=== PATIENT | male | born 1995 | race Caucasian/White ===

== ENCOUNTER 2016-09-12 02:06 | Emergency (ER) | payer OTHER ==
[~2016-09-12] VITALS: Ht 170.2 cm; Wt 63.5 kg
[~2016-09-12 02:06] MED LIST: ZANTAC 150MG T150 MG PO; ZOFRAN ODT4 MG PO
[2016-09-12 02:29] LABS: ABSOLUTE NEUTROPHILS 7.8 thou/uL (1.4-8.2); BASOPHILS 0.5 % (0.0-2.0); EOSINOPHILS 0.8 % (0.0-3.0); HEMATOCRIT 45.5 % (42.0-52.0); HEMOGLOBIN 15.3 gm/dL (14.0-18.0); LYMPHOCYTES 24.1 % (24.0-44.0); MANUAL DIFF NO; MCH 29.7 pg (26.0-34.0); MCHC 33.7 g/dL (28.0-37.0); MONOCYTES 6.9 % (1.0-8.0); PLATELET COUNT 199 thou/uL (150-400); POLYS 67.7 % (36.0-66.0); RBC 5.17 mil/uL (4.50-6.00); RDW 13.4 % (10.5-14.5); WBC 11.5 thou/uL (4.0-11.0)
[2016-09-12 02:43] LABS: CALCIUM 9.1 mg/dL (8.5-10.1); CREATININE 1.1 mg/dL (0.7-1.3); POTASSIUM 3.6 mmol/L (3.5-5.1)
[2016-09-12 02:47] LABS: ALBUMIN 4.6 g/dL (3.4-5.0); TOTAL BILIRUBIN 0.4 mg/dL (<0.1-1.0); TOTAL PROTEIN 7.5 g/dL (6.4-8.2)
[2016-09-12] MEDS ORDERED: LEVSIN0.125 MG PO (04:15)
[2016-09-12] MEDS ORDERED: ZOFRAN ODT8 MG PO (04:15)
[2016-09-12 05:44] VITALS: BP 90/47
== END 2016-09-12 06:11 | disposition home or self-care (01) ==
LOC: ER 02:06
PROVIDERS: Emergency Medicine
DX: R11.2 Nausea with vomiting, unspecified (principal); R19.7 Diarrhea, unspecified; F17.210 Nicotine dependence, cigarettes, uncomplicated

== ENCOUNTER 2017-11-25 04:00 | Emergency (ER) | payer OTHER ==
[~2017-11-25] VITALS: Ht 170.2 cm; Wt 61.2 kg
--- NOTE | ~2017-11-25 | EKG ---
[place] [address] [facility] [place] [address] ELECTROCARDIOGRAM REPORT Name: MODESTO NAJERA Room #: [facility]#: [id number] Admission: 11/25/17 Attend Phys: Discharge: 11/25/17 Date of : [birth year] Report #: [id number] THIS REPORT FOR: //name// [facility] ED Test Date: 2017-11-25 Test Time: 04:38:33 Pat Name: MODESTO NAJERA Department: Room: Gender: M Hospital Security Officer: ani : 1995 Requested By: Venu Bentley Order Number: [id number] MD: Jason Alva Measurements Intervals [place] Rate: 69 P: 78 NC: 174 QRS: 85 QRSD: 102 T: 59 QT: 423 QTc: 454 Interpretive Statements Sinus rhythm No significant abnormality No previous ECG available for comparison Electronically Signed On 11-25-2017 13:53:03 CDT by Jason Alva [email or web address] <ELECTRONICALLY SIGNED> By: Jason Alva MD, [facility] 11/25/17 1353 0438 0438 Jason Alva MD, FACC /EPI
[~2017-11-25 04:00] MED LIST changes: +LEVSIN0.125 MG PO; +ZOFRAN ODT8 MG PO
[2017-11-25 04:21] LABS: ABSOLUTE NEUTROPHILS 4.4 thou/uL (1.4-8.2); BASOPHILS 0.9 % (0.0-2.0); EOSINOPHILS 1.8 % (0.0-3.0); HEMATOCRIT 42.4 % (42.0-52.0); HEMOGLOBIN 14.8 gm/dL (14.0-18.0); MCH 30.5 pg (26.0-34.0); MCHC 34.8 g/dL (28.0-37.0); MCV 87.5 fL (80.0-100.0); MONOCYTES 7.7 % (1.0-8.0); PLATELET COUNT 210 thou/uL (150-400); POLYS 49.6 % (36.0-66.0); RBC 4.84 mil/uL (4.50-6.00)
[2017-11-25 04:39] LABS: ANION GAP 11 mmol/L (7-16); BUN 20 mg/dL (7-18); CALCIUM 9.4 mg/dL (8.5-10.1); CHLORIDE 103 mmol/L (98-107); CO2 24 mmol/L (21-32); CREATININE 1.1 mg/dL (0.7-1.3); GLUCOSE 93 mg/dL (74-106); POTASSIUM 3.4 mmol/L (3.5-5.1); SODIUM 138 mmol/L (136-145)
[2017-11-25 04:44] LABS: ALBUMIN 4.7 g/dL (3.4-5.0); SGOT 19 U/L (15-37); SGPT 23 U/L (30-65); TOTAL BILIRUBIN 0.5 mg/dL (<0.1-1.0); TOTAL PROTEIN 7.8 g/dL (6.4-8.2); TROPONIN-I <0.06 ng/mL (<0.06)
[2017-11-25 07:19] VITALS: BP 132/76
== END 2017-11-25 07:21 | disposition home or self-care (01) ==
LOC: ER 04:00
PROVIDERS: Emergency Medicine
DX: R10.13 Epigastric pain (principal); R10.33 Periumbilical pain; R10.32 Left lower quadrant pain; R11.2 Nausea with vomiting, unspecified; F17.210 Nicotine dependence, cigarettes, uncomplicated; K21.9 Gastro-esophageal reflux disease without esophagitis

== ENCOUNTER 2017-11-25 21:58 | Inpatient (IN) | payer OTHER ==
[~2017-11-25] VITALS: Ht 170.2 cm; Wt 58.4 kg
--- NOTE | ~2017-11-25 | P ---
[facility] [place] [address] [place] [address] PROCEDURE REPORT Name: DANIANAVYAValentin Templeton Room #: 212-P [facility] IN ..#: [id number] Admission: 11/25/17 Attend Phys: Noble Castillo MD Discharge: 11/28/17 Date of : [birth year] Report #: [id number] THIS REPORT FOR: //name// CC: Dr. Kevin MATHIS physician/PCP Noble Castillo DATE OF SERVICE: 11/27/2017 PROCEDURE PERFORMED: Upper endoscopy with biopsies. HISTORY OF PRESENT ILLNESS: The patient is a 22-year-old male with intermittent heartburn symptoms, began having increasing midepigastric abdominal pain and low chest pain as well as nausea and vomiting. CT scan of the abdomen and pelvis was negative for significant findings, although there was a possible fluid around the gallbladder. White blood cell count is 11.1. The patient has been taking Zantac at home without much improvement. The patient denies any dysphagia or odynophagia. Plan is for upper endoscopy. DESCRIPTION OF PROCEDURE: The risks and benefits of the procedure were explained to the patient and those risks including but not limited to bleeding, perforation and the risk of sedation. He understood these risks and gave informed consent. Sedation was given using propofol per Anesthesia. Next, using a standard Olympus upper endoscope, the scope was placed in the patient's mouth and advanced under direct vision through the esophagus, stomach and into the second portion of the duodenum. The larynx was normal in appearance. The upper and mid esophagus was normal. In the distal esophagus at the GE junction, grade B erosive esophagitis was noted. No evidence of bleeding. Overall, the gastric mucosa was normal. Biopsies were obtained to rule out the possibility of H. pylori. The pylorus was normal and patent. The duodenal bulb, first and second portion were all normal. Biopsies were also obtained to rule out the possibility of celiac sprue. The scope was then withdrawn and the procedure terminated. The patient tolerated the procedure well. IMPRESSION: 1. Grade B erosive esophagitis. 2. Otherwise, normal upper endoscopy. RECOMMENDATIONS: 1. Await biopsy results. 2. Continue daily PPI therapy. 3. We will discuss options with the patient at this time. Since he has improved, could consider discharge to home on daily PPI therapy and monitoring or consider PIPIDA scan due to the patient's symptoms and a small amount of fluid around the gallbladder on CT yesterday. [address] [address] PROCEDURE REPORT Name: MODESTO NAJEAR Room #: 212-P [facility] IN .R.#: [id number] Admission: 11/25/17 Attend Phys: Noble Castillo MD Discharge: 11/28/17 Date of : [birth year] Report #: [id number] Thank you for allowing me to participate in his care. <ELECTRONICALLY SIGNED> By: Alejo Guerrero MD 11/30/17 1239 1232 1247 Alejo Guerrero MD /paula
--- NOTE | ~2017-11-25 | PATH ---
[facility] [address] [address] PATHOLOGY RPT PROCEDURE Name: DANIANAVYAValentin Templeton Room #: 212-P DIS IN M.R.#: [id number] Admission: 11/25/17 Date of : [birth year] Discharge: 11/28/17 Report #: [id number] Path Case #: [id number] [facility] Accession Number: [id number] . 01 Material submitted: . PART A: BX SMALL BOWEL R/O CELIAC PART B: BX GASTRIC R/O HPYLORI . 01 Clinical history: . Pre-Op DX: Nausea, vomiting Post-Op DX: Esophagitis . 02 Diagnosis: A. Small bowel mucosa, small bowel rule out celiac, endoscopic biopsy: - No diagnostic abnormalities present. - Negative for villous blunting or increase in intraepithelial lymphocytes. . B. Gastric mucosa, gastric rule out H. pylori, endoscopic biopsy: - Mild focal chronic inflammation. - Negative for intestinal metaplasia or atrophy. - Negative for Helicobacter pylori (properly-controlled immunohistochemical stain performed). . (IUV:mml; 11/28/17) QLM/11/28/2017 . 02 Electronically signed: . Page Maurer MD, Pathologist NPI- [id number] . 01 Gross description: . A. Received in formalin labeled "Adriana Najera, BX small bowel, rule out celiac," are 4 segments of martin soft tissue measuring 1.3 x 0.8 x 0.3 cm in aggregate dimensions and ranging from 0.3 to 0.5 cm in maximum dimension. The specimen is submitted entirely in cassette A1. . B. Received in formalin labeled "Adriana Najera, BX gastric, rule out H. pylori," are 3 segments of martin soft tissue measuring 1.2 x 0.8 x 0.3 cm in aggregate dimensions and ranging from 0.4 to 0.7 cm in maximum dimension. The specimen is submitted entirely in cassette B1. (TSD; 11/27/2017) TOB/TOB . 02 Pathologist provided ICD-10: K29.50, R11.2 . 02 [place] [address] PATHOLOGY RPT PROCEDURE Name: ADRIANA NAJERA Room #: 212-P DIS IN M.R.#: [id number] Admission: 11/25/17 Date of : [birth year] Discharge: 11/28/17 Report #: [id number] Path Case #: [id number] CPT . 707171, [id number], [id number] Performed at: [address], [place], [place] [id number] MD Tello Boudreaux MD Phone: [phone] Performed at: [address] [id number] MD Page Maurer MD Phone: [phone]
[2017-11-25 22:03] VITALS: BP 138/80
[2017-11-25 23:11] LABS: ABSOLUTE NEUTROPHILS 8.3 thou/uL (1.4-8.2); BASOPHILS 0.9 % (0.0-2.0); EOSINOPHILS 0.9 % (0.0-3.0); HEMATOCRIT 42.5 % (42.0-52.0); HEMOGLOBIN 14.5 gm/dL (14.0-18.0); LYMPHOCYTES 17.9 % (24.0-44.0); MCH 29.8 pg (26.0-34.0); MCHC 34.1 g/dL (28.0-37.0); MCV 87.5 fL (80.0-100.0); MONOCYTES 5.9 % (1.0-8.0); PLATELET COUNT 184 thou/uL (150-400); POLYS 74.4 % (36.0-66.0); RBC 4.86 mil/uL (4.50-6.00); RDW 13.2 % (10.5-14.5); WBC 11.1 thou/uL (4.0-11.0)
[2017-11-25 23:19] LABS: CALCIUM 8.8 mg/dL (8.5-10.1)
[2017-11-25 23:25] LABS: ALBUMIN 4.1 g/dL (3.4-5.0); TOTAL BILIRUBIN 0.7 mg/dL (<0.1-1.0); TOTAL PROTEIN 7.1 g/dL (6.4-8.2)
[2017-11-25 23:41] VITALS: BP 116/76
[2017-11-25 23:59] VITALS: BP 97/43
[2017-11-26 00:16] VITALS: BP 108/62
[2017-11-26 03:53] VITALS: BP 105/62
[2017-11-26 07:45] VITALS: BP 113/64
[2017-11-26 15:20] VITALS: BP 111/62
[2017-11-26 15:20] LABS: URINE BILIRUBIN NEGATIVE (Negative); URINE BLOOD NEGATIVE (Negative); URINE CLARITY CLEAR; URINE COLOR YELLOW; URINE GLUCOSE-RANDOM* NEGATIVE (Negative); URINE KETONES 1+ (Negative); URINE LEUKOCYTES-REFLEX NEGATIVE (Negative); URINE NITRITE-REFLEX NEGATIVE (Negative); URINE PROTEIN (DIPSTICK) NEGATIVE (Negative); URINE UROBILINOGEN 0.2 E.U./dl (0.2-1.0)
[2017-11-26 19:35] VITALS: BP 116/76
[2017-11-27 03:58] VITALS: BP 116/66
[2017-11-27 04:36] LABS: POTASSIUM 4.1 mmol/L (3.5-5.1)
[2017-11-27 04:39] LABS: ABSOLUTE NEUTROPHILS 4.3 thou/uL (1.4-8.2); BASOPHILS 0.8 % (0.0-2.0); EOSINOPHILS 2.6 % (0.0-3.0); HEMATOCRIT 42.9 % (42.0-52.0); HEMOGLOBIN 14.5 gm/dL (14.0-18.0); MCH 30.1 pg (26.0-34.0); MCHC 33.8 g/dL (28.0-37.0); MCV 88.9 fL (80.0-100.0); MONOCYTES 7.7 % (1.0-8.0); PLATELET COUNT 194 thou/uL (150-400); POLYS 50.9 % (36.0-66.0); RBC 4.82 mil/uL (4.50-6.00); RDW 13.5 % (10.5-14.5); WBC 8.4 thou/uL (4.0-11.0)
[2017-11-27 07:20] VITALS: BP 118/76
[2017-11-27 15:05] VITALS: BP 126/77
[2017-11-27 19:37] VITALS: BP 110/69
[2017-11-28 03:52] VITALS: BP 117/74
[2017-11-28 12:17] VITALS: BP 117/74
== END 2017-11-28 13:29 | disposition home or self-care (01) | DRG 382 ==
LOC: ER 21:58 → 2N 22:40 → EROBS 22:40 → 2N 11-26 00:06
PROVIDERS: Emergency Medicine; Nurse Practitioner
PROC: 0DB68ZX Excision of Stomach, Via Natural or Artificial Opening Endoscopic, Diagnostic (ICD-10-PCS; principal; 2017-11-27)
PROC: 0DB88ZX Excision of Small Intestine, Via Natural or Artificial Opening Endoscopic, Diagnostic (ICD-10-PCS; principal; 2017-11-27)
DX: K22.10 Ulcer of esophagus without bleeding (principal); K29.70 Gastritis, unspecified, without bleeding; F17.210 Nicotine dependence, cigarettes, uncomplicated; K21.0 Gastro-esophageal reflux disease with esophagitis; E87.6 Hypokalemia; F12.188 Cannabis abuse with other cannabis-induced disorder; Z79.899 Other long term (current) drug therapy; Z71.6 Tobacco abuse counseling; Z71.51 Drug abuse counseling and surveillance of drug abuser
CPT/HCPCS: 10081; 62110; 62900; 70005

== ENCOUNTER 2017-12-01 23:34 | Emergency (ER) | payer OTHER ==
[~2017-12-01] VITALS: Ht 170.2 cm; Wt 61.2 kg
[2017-12-02] MEDS ORDERED: ONDANSETRON HCL4 M2 PO (00:04)
[2017-12-02] MEDS ORDERED: NORCO 5-325 TA1 EACH PO (00:05)
[2017-12-02] MEDS ORDERED: NEXIUM40 MG PO (00:05)
== END 2017-12-02 02:49 | disposition home or self-care (01) ==
LOC: ER 23:34
DX: K29.70 Gastritis, unspecified, without bleeding (principal); F17.210 Nicotine dependence, cigarettes, uncomplicated

== ENCOUNTER 2019-11-16 16:19 | Emergency (ER) | payer OTHER ==
[~2019-11-16] VITALS: Ht 170.2 cm; Wt 59.0 kg
[~2019-11-16 16:19] MED LIST changes: +NEXIUM40 MG PO; +NORCO 5-325 TA1 EACH PO; +ONDANSETRON HCL4 M2 PO
[2019-11-16 16:50] LABS: ABSOLUTE NEUTROPHILS 4.6 thou/uL (1.4-8.2); BASOPHILS 1.2 % (0.0-2.0); EOSINOPHILS 0.6 % (0.0-3.0); HEMATOCRIT 46.1 % (42.0-52.0); HEMOGLOBIN 16.2 gm/dL (14.0-18.0); LYMPHOCYTES 45.5 % (24.0-44.0); MCH 30.7 pg (26.0-34.0); MCV 87.7 fL (80.0-100.0); MONOCYTES 8.6 % (1.0-8.0); PLATELET COUNT 264 thou/uL (150-400); POLYS 44.1 % (36.0-66.0); RBC 5.26 mil/uL (4.50-6.00); RDW 13.5 % (10.5-14.5); WBC 10.5 thou/uL (4.0-11.0)
[2019-11-16 16:59] LABS: CALCIUM 9.5 mg/dL (8.5-10.1); CREATININE 1.1 mg/dL (0.7-1.3); POTASSIUM 3.1 mmol/L (3.5-5.1)
[2019-11-16 17:05] LABS: ALBUMIN 4.8 g/dL (3.4-5.0); TOTAL BILIRUBIN 0.8 mg/dL (0.2-1.0); TOTAL PROTEIN 8.1 g/dL (6.4-8.2)
[2019-11-16] MEDS ORDERED: ONDANSETRON HCL4 M2 PO (19:58)
[2019-11-16 20:00] VITALS: BP 122/76
[2019-11-17] MEDS ORDERED: PEPCID20 MG PO (05:06)
== END 2019-11-16 20:05 | disposition home or self-care (01) ==
LOC: ER 16:19
PROVIDERS: Physician Assistant
DX: R11.15 Cyclical vomiting syndrome unrelated to migraine (principal); R10.13 Epigastric pain; F12.10 Cannabis abuse, uncomplicated; F17.210 Nicotine dependence, cigarettes, uncomplicated; Z79.899 Other long term (current) drug therapy

== ENCOUNTER 2019-11-17 02:14 | Emergency (ER) | payer OTHER ==
[~2019-11-17] VITALS: Ht 170.2 cm; Wt 59.0 kg
[2019-11-17] MEDS ORDERED: PEPCID20 MG PO (05:06)
[2019-11-17 05:16] VITALS: BP 126/74
== END 2019-11-17 05:16 | disposition home or self-care (01) ==
LOC: ER 02:14
DX: R11.2 Nausea with vomiting, unspecified (principal); Z79.899 Other long term (current) drug therapy; Z87.891 Personal history of nicotine dependence